=== PATIENT | female | born 1985 | race Caucasian/White ===

== ENCOUNTER 2024-04-11 19:52 | Emergency (ER) | payer OTHER ==
[~2024-04-11] VITALS: Ht 160 cm; Wt 99.8 kg
[2024-04-11 21:03] LABS: APPEARANCE,URINE Clear (CLEAR); BILIRUBIN,URINE Negative (NEGATIVE); BLOOD, URINE Negative Ery/uL (NEGATIVE); COLOR,URINE YELLOW (YELLOW); KETONES,URINE Negative (NEGATIVE); LEUKOCYTE ESTERASE ,URINE Negative (NEGATIVE); NITRITE, URINE Negative (NEGATIVE); PROTEIN,URINE Negative (NEGATIVE); UGLUCOSE Negative (NEGATIVE); UROBILINOGEN,URINE 0.2 EU/dL (0.2)
[2024-04-11 21:05] LABS: ALBUMIN 4.1 g/dL (3.4-5.0); BILIRUBIN,DIRECT 0.1 mg/dL (0.0-0.2); BILIRUBIN,TOTAL 0.3 mg/dL (0.2-1.0); CALCIUM, SERUM 8.7 mg/dL (8.5-10.1); CREATININE 0.7 mg/dL (0.6-1.3); POTASSIUM 3.6 mmol/L (3.5-5.1); TOTAL PROTEIN, SERUM 7.8 g/dL (6.4-8.2)
[2024-04-11 21:06] LABS: PREGNANCY TEST URINE QUAL NEGATIVE (NEGATIVE)
[2024-04-11] MEDS ORDERED: LIDOCAINE VISCOUS 2% UD 15 ML UDC ONE (21:28)
[2024-04-11] MEDS ORDERED: MAG HYDROX/AL HYDROX/SIMETH 30 ML UDC ONE (21:28)
[2024-04-11] MEDS: MAG HYDROX/AL HYDROX/SIMETH 30 ML UDC PO ONE (21:42)
[2024-04-11] MEDS: LIDOCAINE VISCOUS 2% UD 15 ML UDC MM ONE (21:42)
[2024-04-11] MEDS ORDERED: FAMO20TA80 PO (21:50)
[2024-04-11 22:02] VITALS: BP 154/86; TEMP 98.5; O2SAT 98
== END 2024-04-11 22:03 | disposition home or self-care (01) ==
LOC: ER 19:57
DX: R10.13 Epigastric pain (principal)
CPT/HCPCS: 36415; 76705-TC; 80048-TC; 80076-TC; 83690-TC; 84703-TC